=== PATIENT | female | born 1950 | race Caucasian/White ===

== ENCOUNTER → 2016-09-29 | Outpatient (CLI) | payer OTHER | LOC: BHFA 10:00 | PROVIDERS: ATTEND Internal Medicine Cardiovascular Disease | DX: R01.1 Cardiac murmur, unspecified (principal) ==

== ENCOUNTER → 2016-10-15 | Outpatient (CLI) | payer OTHER | LOC: FIMAGING 07:46 | PROVIDERS: ATTEND Radiology Diagnostic Radiology | DX: I83.813 Varicose veins of bilateral lower extremities with pain (principal); I83.892 Varicose veins of left lower extremity with other complications ==

== ENCOUNTER 2016-11-04 07:44 | Day surgery (SDC) | payer OTHER ==
[2016-11-04] MEDS ORDERED: ONDANSETRON 4 MG/2 ML VIAL IVP ONE (07:51)
[2016-11-04] MEDS ORDERED: ceFAZolin 2 GM/DEXTROSE 100 ML IV ONE ×2 (07:51)
[2016-11-04] MEDS ORDERED: NS 1,000 ML IV ONE (07:51)
[2016-11-04] MEDS ORDERED: CEFAZOLIN 1 GM/DEXTROSE/50 ML BAG IV ONE (08:01)
[2016-11-04] MEDS ORDERED: NALOXONE HCL 0.4 MG/ML INJ ONE (08:44)
[2016-11-04] MEDS ORDERED: fentaNYL 100 MCG/2 ML INJ ONE (08:45)
[2016-11-04] MEDS ORDERED: MIDAZOLAM 2 MG/2 ML VIAL ONE (08:45)
[2016-11-04] MEDS ORDERED: SUCCINYLCHOLINE CHLORIDE 200 MG/10 ML VIAL ONE (08:46)
[2016-11-04] MEDS ORDERED: SODIUM TETRADECYL SULFATE 60 MG/2 ML VIAL IV ONE (08:47)
[2016-11-04] MEDS ORDERED: LIDO/EPI 1% **for epidural** 30 ML SDV ONE (08:47)
[2016-11-04] MEDS ORDERED: FLUMAZENIL 0.5 MG/5 ML MDV IVP ONE (08:49)
--- NOTE | 2016-11-04 09:31 | CPEKG ---
Heart Rate: 57 RR Interval: 1053 P-R Interval: 386 QRSD Interval: 74 QT Interval: 460 QTC Interval: 448 P Mcclellan: -29 QRS Mcclellan: -18 T Wave Mcclellan: 22 EKG Severity - ABNORMAL ECG - EKG Impression: SINUS RHYTHM EKG Impression: FIRST DEGREE AV BLOCK -- VERY PRONOUNCED EKG Impression: CONSIDER LEFT VENTRICULAR HYPERTROPHY EKG Impression: CONSIDER INFERIOR INFARCT Electronically Signed By: Ben Ohara 04-Nov-2016 18:44:28
[2016-11-04] MEDS ORDERED: ACETAMINOPHEN 500 MG TAB ONE (13:07)
== END 2016-11-04 14:30 | disposition home health service (06) ==
LOC: FIMAGING 07:44
PROVIDERS: ATTEND Radiology Diagnostic Radiology
PROC: 3E033TZ Introduction of Destructive Agent into Peripheral Vein, Percutaneous Approach (ICD-10-PCS; principal; 2016-11-04 10:58)
PROC: 065Y3ZZ Destruction of Lower Vein, Percutaneous Approach (ICD-10-PCS; principal; 2016-11-04 10:58)
PROC: 06DY3ZZ Extraction of Lower Vein, Percutaneous Approach (ICD-10-PCS; principal; 2016-11-04 10:58)
DX: I83.811 Varicose veins of right lower extremity with pain (principal); I87.2 Venous insufficiency (chronic) (peripheral)
CPT/HCPCS: J0330; J0690; J2250; J2310; J3010

== ENCOUNTER 2016-11-05 11:42 | Day surgery (SDC) | payer OTHER ==
[2016-11-05] MEDS ORDERED: NS 1,000 ML IV ONE (12:08)
[2016-11-05] MEDS ORDERED: ONDANSETRON 4 MG/2 ML VIAL IVP ONE (12:08)
[2016-11-05] MEDS ORDERED: ceFAZolin 2 GM/DEXTROSE 100 ML IV ONE ×2 (12:08)
[2016-11-05] MEDS ORDERED: MIDAZOLAM 2 MG/2 ML VIAL ONE (12:24)
[2016-11-05] MEDS ORDERED: fentaNYL 100 MCG/2 ML INJ ONE ×2 (12:24)
[2016-11-05] MEDS ORDERED: CEFAZOLIN 1 GM/DEXTROSE/50 ML BAG IV ONE (12:24)
[2016-11-05] MEDS ORDERED: CEFAZOLIN 2 GM/DEXTROSE/100 ML BAG IV ONE (12:28)
[2016-11-05] MEDS ORDERED: LIDO/EPI 1% **for epidural** 30 ML SDV ONE ×2 (12:28→12:29)
[2016-11-05] MEDS ORDERED: SODIUM TETRADECYL SULFATE 60 MG/2 ML VIAL IV ONE (12:28)
[2016-11-05] MEDS ORDERED: ACETAMINOPHEN 325 MG TAB ONE (14:39)
== END 2016-11-05 16:20 | disposition home or self-care (01) ==
LOC: FIMAGING 11:42
PROVIDERS: ATTEND Radiology Diagnostic Radiology
DX: I83.893 Varicose veins of bilateral lower extremities with other complications (principal)
CPT/HCPCS: J0690; J2250; J3010

== ENCOUNTER → 2017-10-02 | Outpatient (CLI) | payer OTHER | LOC: FIMAGING 14:21 | PROVIDERS: ATTEND Internal Medicine | DX: J98.09 Other diseases of bronchus, not elsewhere classified (principal) ==

== ENCOUNTER → 2017-10-27 | Outpatient (CLI) | payer OTHER | LOC: BHFA 14:45 | PROVIDERS: ATTEND Internal Medicine Cardiovascular Disease | DX: I50.9 Heart failure, unspecified (principal) ==

== ENCOUNTER → 2018-04-29 | Outpatient (CLI) | payer OTHER | LOC: FIMAGING 15:33 | PROVIDERS: ATTEND Internal Medicine | DX: M54.5 Low back pain (principal) ==

== ENCOUNTER → 2018-11-24 | Outpatient (CLI) | payer OTHER | LOC: BMCIMAGING 14:41 | PROVIDERS: ATTEND Family Medicine | DX: Z12.31 Encounter for screening mammogram for malignant neoplasm of breast (principal) ==

== ENCOUNTER → 2019-01-25 | Outpatient (CLI) | payer OTHER | LOC: FIMAGING 09:52 ==